=== PATIENT | female | born 1995 | race Caucasian/White ===

== ENCOUNTER 2017-02-05 17:53 | Emergency (ER) | payer MEDICAID ==
[~2017-02-05] VITALS: Ht 177.8 cm; Wt 86.6 kg
[2017-02-05] MEDS ORDERED: PROZAC40 MG PO (18:04)
== END 2017-02-05 19:07 | disposition short-term general hospital (02) ==
LOC: ER 17:53
DX: R20.0 Anesthesia of skin (principal); Z79.899 Other long term (current) drug therapy; Z88.5 Allergy status to narcotic agent